=== PATIENT | female | born 2005 | race Hispanic/Latino ===

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

== ENCOUNTER 2023-03-31 11:58 | Emergency (ER) | payer OTHER ==
[2023-03-31] MEDS ORDERED: Ondansetron ODT 4 MG TAB ONE (13:13)
[2023-03-31 14:26] LABS: #Eosinphils 0.1 thou/uL (0.0-0.7); #Monocytes 0.5 thou/uL (0.11-0.59); %Basophils 0.1 % (0.0-1.0); %Eosinophils 1.2 % (0.0-10.0); %Lymphocytes 18.6 % (28.0-48.0); %Monocytes 4.5 % (0.0-4.0); Hematocrit 41.1 % (36.0-47.0); Hemoglobin 13.8 g/dL (12.0-16.0); Mean Corpuscular HGB CONC 33.6 g/dL (32.0-36.0); Mean Corpuscular Hemoglobin 29.9 pg (25.0-35.0); Mean Platelet Volume 9.7 fL (7.4-10.4); Platelet Count 310 10x3/uL (130-400); RBC Distribution Width 13.8 % (11.5-14.5); Red Blood Cell (RBC) Count 4.62 mill/uL (4.00-5.20); White Blood Cell (WBC) Count 10.7 10x3/uL (4.8-10.8)
[2023-03-31 14:39] LABS: BHCG - Serum Negative (NEGATIVE); Pregs Control Background? CLEAR/WHITE (CLR/WHITE); Pregs Control Bar Appear? YES (CONTROL BAR)
[2023-03-31 14:44] LABS: ALT (SGPT) 32 U/L (8-55); AST (SGOT) 37 U/L (5-30); Albumin 4.1 g/dL (3.5-5.0); Alkaline Phosphatase 96 U/L (40-100); Anion Gap 11 mmol/L (10-20); BUN (Urea Nitrogen) 13 mg/dL (8.4-21.0); Bilirubin, Total 0.2 mg/dL (0.2-1.2); Calc. Creatinine Clearance 0 mL/min (70-130); Calcium 9.3 mg/dL (7.8-10.44); Carbon Dioxide 24 mmol/L (22-29); Chloride 107 mmol/L (98-107); Estimated GFR 116; Globulin 3.6 g/dL (2.4-3.5); Glucose 105 mg/dL (70-105); Lipase 11 U/L (8-78); Potassium 4.2 mmol/L (3.5-5.1); Protein, Total 7.7 g/dL (6.0-8.3); Sodium 138 mmol/L (136-145)
[2023-03-31 14:56] LABS: SARS-CoV-2 NAA Rapid Test Not Detected (NotDetected)
== END 2023-03-31 15:20 | disposition home or self-care (01) ==
LOC: ERS 11:58
DX: R11.2 Nausea with vomiting, unspecified (principal)
CPT/HCPCS: 36415; 80053; 83690; 84703; 85025; 99284; Q0162

== ENCOUNTER 2023-07-31 09:09 | Emergency (ER) | payer OTHER ==
[2023-07-31] MEDS ORDERED: Ketorolac Tromethamine 30 MG (1 mL) VIAL ONE (09:58)
[2023-07-31] MEDS ORDERED: Ondansetron PF 4 MG/2 ML Vial ONE (09:58)
== END 2023-07-31 12:36 | disposition home or self-care (01) ==
LOC: ERS 09:09
DX: G44.209 Tension-type headache, unspecified, not intractable (principal); F84.0 Autistic disorder; F20.9 Schizophrenia, unspecified; Z79.899 Other long term (current) drug therapy
CPT/HCPCS: 96361; 96374; 96375; J1885; J2405

== ENCOUNTER 2024-02-28 13:03 | Emergency (ER) | payer OTHER ==
[2024-02-28] MEDS ORDERED: Ketorolac Tromethamine 30 MG (1 mL) VIAL ONE (14:49)
[2024-02-28] MEDS ORDERED: diphenhydrAMINE 50 MG/ML VIAL ONE (14:49)
[2024-02-28] MEDS ORDERED: Dexamethasone 10 MG/ML VIAL ONE (14:49)
[2024-02-28] MEDS ORDERED: Ondansetron PF 4 MG/2 ML Vial ONE (14:49)
== END 2024-02-28 16:56 | disposition home or self-care (01) ==
LOC: ERS 13:03
DX: R51.9 Headache, unspecified (principal); R29.700 NIHSS score 0
CPT/HCPCS: 70450; 96361; 96374; 96375; J1100; J1200; J1885; J2405

== ENCOUNTER 2024-12-11 20:32 | Emergency (ER) | payer MEDICAID ==
[2024-12-11 21:30] LABS: Pregnancy Test - Urine (BHCG) Negative (Negative); Pregu Control Background? CLEAR/WHITE (CLR/WHITE); Pregu Control Bar Appear? YES (CONTROL BAR)
[2024-12-11 21:31] LABS: CAUTI Indications for Culture Dysuria,urgency,freq; Glucose, Urine (Dipstick) Normal (Negative); Leukocyte Negative Leu/uL (Negative); Protein, Urine (Dipstick) Negative (Neg-Trace); RBC/HPF 0-3 HPF (0-3); Specific Gravity, Urine 1.015 (1.002-1.036); WBC/HPF 0-3 HPF (0-3)
[2024-12-11 21:32] LABS: Bacteria/HPF Rare-Few HPF (None Seen)
[2024-12-11 21:34] LABS: Urine Culture Reflex No No
== END 2024-12-11 22:15 | disposition home or self-care (01) ==
LOC: ERS 20:32
DX: B34.9 Viral infection, unspecified (principal)
CPT/HCPCS: 36416; 81001; 81025; 87081; 87430; 93005; 99283